=== PATIENT | female | born 1950 | race Two or more races ===

== ENCOUNTER 2020-01-08 21:14 | Emergency (ER) | payer MEDICARE, BC ==
[~2020-01-08] VITALS: Ht 144.8 cm; Wt 52.0 kg
[2020-01-08] MEDS ORDERED: ONDANSETRON ODT 4 MG ONE (21:39)
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
[2020-01-08] MEDS ORDERED: ONDANSETRON ODT 4 MG PO ONE (22:00)
--- NOTE | 2020-01-08 22:17 | NUR ---
PT AT CT
[2020-01-08] MEDS ORDERED: LIDOCAINE-MPF 2%, 2ML SQ ONE (22:30)
--- NOTE | 2020-01-08 22:50 | NUR ---
PT IS BACK FROM CT AND RESTING IN ROOM. NO ACUTE DISTRESS NOTED. WILL CONTINUE TO MONITOR.
--- NOTE | 2020-01-08 23:05 | NUR ---
PT ALERT AND TALKING. VS STABLE. NO ACUTE DISTRESS NOTED. CALL LIGHT IN PLACE. WILL CONTINUE TO MONITOR.
[2020-01-08] MEDS ORDERED: LIDOCAINE-MPF 1%, 5ML ONE (23:16)
--- NOTE | 2020-01-08 23:17 | NUR ---
GERTRUDE BENSON IN ROOM
--- NOTE | 2020-01-09 00:20 | NUR ---
REDUCTION DONE PER GERTRUDE BENSON XRAYS DONE. PT TALKING WITH AT BEDSIDE. VS STABLE. CALL LIGHT IN PLACE. WILL CONTINUE TO MONITOR.
[2020-01-09 00:33] VITALS: BP 118/58
--- NOTE | 2020-01-09 00:34 | NUR ---
PT IS A&O X4 AND IS ABLE TO SAFELY AMBULATE AROUND ROOM.
--- NOTE | 2020-01-09 00:34 | NUR ---
PT READY FOR DISCHARGE PT DISCHARGED PER GERTRUDE BENSON VS STABLE. TO DRIVE PATIENT HOME.
--- NOTE | 2020-01-09 00:46 | NUR ---
PT REPORTS SHE WANTS TO GO HOME. HERE TO TAKE PATIENT HOME. GERTRUDE BENSON HAS SEEN PATIENT. PATIENT UNDERSTANDS DISCHARGE INSTRUCTIONS. PT DISCHARGED.
== END 2020-01-09 00:55 | disposition home or self-care (01) ==
LOC: ED 21:44
DX: S52.512A Displaced fracture of left radial styloid process, initial encounter for closed fracture (principal); S52.612A Displaced fracture of left ulna styloid process, initial encounter for closed fracture; S09.90XA Unspecified injury of head, initial encounter; M54.2 Cervicalgia; F10.120 Alcohol abuse with intoxication, uncomplicated; E03.9 Hypothyroidism, unspecified; W01.0XXA Fall on same level from slipping, tripping and stumbling without subsequent striking against object, initial encounter; Y93.89 Activity, other specified; Y92.098 Other place in other non-institutional residence as the place of occurrence of the external cause; Y99.8 Other external cause status; Y90.0 Blood alcohol level of less than 20 mg/100 ml
CPT/HCPCS: 25605; 70450; 72125; 73100; 99285; J3490; Q0162